=== PATIENT | male | born 1990 | race Caucasian/White ===

== ENCOUNTER 2025-04-01 16:11 | Emergency (ER) | payer OTHER, SELFPAY ==
[2025-04-01 16:24] VITALS: BP 121/71; PULSE 114; RESP 16; TEMP 36.2; O2SAT 100
--- NOTE | 2025-04-01 17:02 | ED.URI ---
HPI - URI/Sore Throat General Chief Complaint: Upper Respiratory Infection Stated Complaint: Sinus Infection Time Seen by Provider: 04/01/25 16:40 Source: patient and RN notes reviewed Mode of arrival: ambulatory Limitations: no limitations History of Present Illness HPI Narrative: 35-year-old female presents today with 3 week history of nasal congestion, postnasal drip, headache with a 2 week history of severe facial pressure and malodorous nasal discharge. Denies fever or cough. States she typically gets 2-3 sinus infections per year normally resolve with some [id number]-[id number]-[id number] medication. She has been taking Flonase and Tylenol Sinus without improvement of symptoms. Reports history of 12 nasal fractures in past usually due to hockey injuries. Related Data Home Medications ?Medication ?Instructions ?Recorded ?Confirmed ?Last Taken ?Type citalopram 40 mg tablet (Celexa) 40 mg PO DAILY 04/01/25 04/01/25 Unknown History lisdexamfetamine 60 mg capsule 60 mg PO DAILY 04/01/25 04/01/25 Unknown History (Vyvanse) spironolactone 50 mg tablet 50 mg PO DAILY 04/01/25 04/01/25 Unknown History (Aldactone) Allergies Allergy/AdvReac Type Severity Reaction Status Date / Time No Known Allergies Allergy Verified 04/01/25 16:25 [facility] Past Medical History Medical History Nasal bone fractures Transgender female Comments At time of signature, I have reviewed and agree with nursing past medical, surgical, social and family history unless otherwise noted. Please see nursing chart for further information. There is no relevant family history pertinent to the presenting complaint Exam Narrative: GENERAL: Mildly ill appearing, well-nourished, and in no acute distress. HEAD: Normocephalic, atraumatic. EYES: EOMI. No redness or drainage. Conjunctivae normal. ENT: Mucous membranes pink and moist. Nares congested. No rhinorrhea. TMs normal bilaterally. Throat normal. Uvula midline. NECK: Normal AROM. Supple. No lymphadenopathy. CHEST: No respiratory distress. Clear to auscultation. HEART: Regular rate and rhythm. No murmur appreciated. EXTREMITIES: Normal range of motion. No edema. SKIN: Warm, dry, no rash. Capillary refill normal. Normal skin turgor. NEURO: No focal deficits. Alert and oriented x3. Gait steady. PSYCH: Normal affect. No signs of depression or anxiety. Course Course Level of Care: Express Care Visit Vital Signs Vital signs: Vital Signs Temperature 97.2 F L 04/01/25 16:24 Pulse Rate 114 H 04/01/25 16:24 Respiratory Rate 16 04/01/25 16:24 Blood Pressure 121/71 04/01/25 16:24 Pulse Oximetry 100 04/01/25 16:24 Oxygen Delivery Room Air 04/01/25 16:24 Temperature 97.2 F L 04/01/25 16:24 Pulse Rate 114 H 04/01/25 16:24 Respiratory Rate 16 04/01/25 16:24 Blood Pressure 121/71 04/01/25 16:24 Pulse Oximetry 100 04/01/25 16:24 Oxygen Delivery Room Air 04/01/25 16:24 Reviewed MDM - URI/Sore Throat MDM Narrative Medical decision making narrative: 35 year old transgender woman presents today with a 3 week history of congestion, postnasal drip, headache with a 2 week history of facial pressure and malodorous nasal discharge. Exam shows patient is mildly ill appearing with nasal congestion and nasal discharge. She will be treated with a course of Augmentin for sinusitis and recommend continuing [id number] medications for symptoms. Vital signs stable. Anticipatory guidance given. Patient agrees with plan. 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 Her health insurance shows a name of Shane Haywoodsydnie, which was her old name. She is asking for her prescriptions to be written in her old name, which cannot be done within this EMR, so prescription for Augmentin was written on a paper prescription pad, but also entered into the Discharge Plan section so it is also recorded in the EMR this way. The printed prescription from EMR with the name Mat Curtis was then shredded. Differential Diagnosis Differential diagnosis: Likely upper respiratory infection, otitis media, sinusitis and viral infection Critical Care Time Critical Care Time Critical Care Time: No Discharge Plan Discharge Clinical Impression: Sinusitis Qualifiers: Sinusitis location: maxillary Chronicity: acute Recurrence: non-recurrent Qualified Code(s): J01.00 - Acute maxillary sinusitis, unspecified Patient Disposition: Home Condition: Stable Instructions: Sinusitis (ED) Additional Instructions: Please take the Augmentin as prescribed until gone. Continue OTC medication as needed. Follow-up with your PCP in 3 days if symptoms are not improving. Patient Language: Moldovan Prescriptions: New amoxicillin-pot clavulanate 875-125 mg tablet 1 tablet PO Q12H 7 Days Qty: 14 0RF No Action lisdexamfetamine [Vyvanse] 60 mg capsule 60 mg PO DAILY citalopram [Celexa] 40 mg tablet 40 mg PO DAILY spironolactone [Aldactone] 50 mg tablet 50 mg PO DAILY Follow-up/Referrals: PHYSICIAN,COST CONTROL SUPERVISOR [Primary Care Provider, Internal Medicine] Time of Disposition: 16:56
== END 2025-04-01 17:03 | disposition home or self-care (01) ==
PROVIDERS: Emergency Provider Nurse Practitioner
DX: J01.00 Acute maxillary sinusitis, unspecified (principal); F64.0 Transsexualism
CPT/HCPCS: 99213; G0463